=== PATIENT | female | born 1985 | race Hispanic/Latino ===

== ENCOUNTER 2018-01-04 22:59 | Emergency (ER) | payer OTHER ==
[~2018-01-04] VITALS: Ht 142.2 cm; Wt 78.5 kg
[2018-01-04] MEDS ORDERED: HYDROXYZINE HCL10 MG PO (23:11)
[2018-01-05] MEDS ORDERED: OMEPRAZOLE20 MG PO (00:31)
--- NOTE | 2018-01-05 14:57 | EKG ---
[facility] [address] [facility] [place], [place] [address] Signed Sinus tachycardia Otherwise normal ECG No previous ECGs available Confirmed by BRYANT LITTLE MD ([id number] on 01/05/2018 2:56:44 PM Electronically Signed By: BRYANT LITTLE MD 01/05/18 1457 PATIENT NAME: JEROMY WHITTAKER Electrocardiogram DATE OF : 83 PHYSICIAN: BRYANT LITTLE MD REPORT #: [id number] REPORT IS CONFIDENTIAL AND NOT TO BE RELEASED WITHOUT AUTHORIZATION
== END 2018-01-05 00:52 | disposition home or self-care (01) ==
LOC: ED 22:59
DX: R10.13 Epigastric pain (principal); F41.9 Anxiety disorder, unspecified
CPT/HCPCS: 71045; 80053; 84484; 85025; 93005; 93010; 99284